=== PATIENT | male | born 1955 | race Caucasian/White ===

== ENCOUNTER 2016-06-16 09:30 | Inpatient (IN) | payer OTHER ==
--- NOTE | 2016-07-10 13:09 | GHP ---
[f rep st] PREOP HISTORY AND PHYSICAL DATE OF SURGERY: He will be an a.m. admission for surgery on July 15, 2016. PROBLEM: Right hip degenerative arthritis. HISTORY OF PRESENT ILLNESS: The patient is a 61-year-old man admitted for a right hip [place] hip resurfacing arthroplasty. For the past 2 years, he has developed progressive right hip pain. This initially started with groin pain. The pain has progressed. He has groin and buttock pain. He has been using ibuprofen. He normally likes to work out at the gym, ski, play golf and bicycle. I did his left BHR 8 years ago. He has a very good result. PAST MEDICAL HISTORY: He has a history of skin cancer. No history of previous MRSA staph infections. No history of heart disease or stents, DVT, hepatitis, or sleep apnea. CURRENT MEDICATIONS: None. ALLERGIES: Drug allergies: None. Metal allergies: None. Latex allergy: None. 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 He does not smoke cigarettes. Occasionally drinks alcohol. He is . FAMILY HISTORY: Positive for cancer, arthritis and heart disease. PHYSICAL EXAMINATION: GENERAL: He is a fit appearing man, height 5 feet 11 inches. Weight 180 pounds. BMI 25.1. EYES: Conjunctivae and sclerae are clear. Pupils are round and reactive. MOUTH: Good oral hygiene. No loose teeth. CHEST: Clear. HEART: Regular rhythm. No murmurs. EXTREMITIES: Pertinent findings are limited to his right hip. He has full hip extension and 90 degrees of flexion. External rotation 10 degrees. Internal rotation 0 degrees. Abduction 25 degrees. IMAGING: Films show advanced degenerative arthritis of his right hip. He is bone on bone. His left BHR looks good. He has a moderate area of heterotopic ossification lateral to the hip joint. IMPRESSION ON ADMISSION: 1. Right hip advanced degenerative arthritis. 2. Eight years status post left Stanley hip resurfacing. PLAN: He will undergo a right hip Priscila hip resurfacing arthroplasty. The surgery has been described to him including the risks, complications, expectations, and recovery time. I have reviewed with him again the risk of infection, dislocation, sciatic nerve injury and femoral neck fracture. I have also discussed with him in detail the issue of elevated metal ions in the blood and in the soft tissues around the hip joint. I have offered him the option of a conventional total hip replacement. All his questions have been answered. He feels strongly that he wants to go ahead with another resurfacing procedure. /[id number]/MODL MTDD
[2016-07-15] MEDS ORDERED: FAMOTIDINE 20 MG TAB PO ONE (06:00)
[2016-07-15] MEDS ORDERED: POVIDONE-IODINE 20 ML in SODIUM CL IRRIG SOLUTION 500 ML IRR ONE (06:00)
[2016-07-15] MEDS ORDERED: CEFAZOLIN 2 GM/DEXTR 100 ML IV ONE (06:00)
[2016-07-15] MEDS ORDERED: CHLORHEXIDINE GLUC HIBICLENS 118 ML BTL TP ONE (06:00)
[2016-07-15] MEDS ORDERED: ROPI/epiNEPH/KETOROLAC JOINT COCKTAIL IU ONE (06:00)
[2016-07-15] MEDS ORDERED: TRANEXAMIC ACID 1,640 MG in NS 100 ML IV ONE (06:00)
[2016-07-15] MEDS ORDERED: ACETAMINOPHEN 325 MG TAB PO ONE (06:00)
[2016-07-15] MEDS ORDERED: DEXAMETHASONE 4 MG/ML VIAL IVP ONE (06:00)
[2016-07-15] MEDS ORDERED: ACETAMINOPHEN 325 MG TAB ONE (08:21)
[2016-07-15] MEDS ORDERED: FAMOTIDINE 20 MG TAB ONE (08:21)
[2016-07-15] MEDS ORDERED: DEXAMETHASONE 4 MG/ML VIAL ONE (08:21)
[2016-07-15] MEDS ORDERED: CEFAZOLIN 2 GM/DEXTROSE/100 ML BAG IV ONE (08:22)
[2016-07-15] MEDS ORDERED: LIDOCAINE 1% 5 ML SDV ONE (08:22)
[2016-07-15] MEDS ORDERED: SKIN ADHESIVE (DERMABOND) 1 EACH TP ONE (08:37)
[2016-07-15] MEDS ORDERED: ceFAZolin 1 GM/5 ML SYR ONE (08:37)
[2016-07-15] MEDS ORDERED: fentaNYL 100 MCG/2 ML INJ ONE (09:07)
[2016-07-15] MEDS ORDERED: PROPOFOL/EMULSION 500 MG/50 ML BOTTLE IV ONE (09:07)
[2016-07-15] MEDS ORDERED: LIDOCAINE 1% 5 ML SDV ID PRN (09:29)
[2016-07-15] MEDS ORDERED: LR 1,000 ML IV ONE (09:29)
[2016-07-15] MEDS ORDERED: MIDAZOLAM 2 MG/2 ML VIAL ONE (09:30)
[2016-07-15] MEDS ORDERED: LIDOCAINE 2% 5 ML SDV ONE ×2 (09:49)
[2016-07-15] MEDS ORDERED: epHEDrine SULFATE 10 MG/ML SYR ONE ×2 (10:13→10:24)
--- NOTE | 2016-07-15 11:30 | POSTOPPROG ---
Post Op Note Date of Operation: 07/15/16 Surgeon: Chriss Montelongo Supervisor [employer]: Jennifer Anesthesiologist: Stanley Anesthesia: IV Sedation, Spinal Post-op Diagnosis: right hip arthritis Procedure: R BHR Inf/Abcess present in the surg proc area at time of surgery?: No EBL: 100-500
[2016-07-15] MEDS ORDERED: PROMETHAZINE HCL 25 MG SUPPR PR PRN (11:41)
[2016-07-15] MEDS ORDERED: diphenhydrAMINE 25 MG CAP PO PRN (11:41)
[2016-07-15] MEDS ORDERED: LACTULOSE 20 GM/30 ML UDCUP PO PRN (11:41)
[2016-07-15] MEDS ORDERED: MAGNESIUM HYDROXIDE 30 ML UDCUP PO PRN (11:41)
[2016-07-15] MEDS ORDERED: BISACODYL 10 MG SUPP PR PRN (11:41)
[2016-07-15] MEDS ORDERED: DIPHENOXYLATE/ATROPINE LOMOTIL 1 TAB PO PRN (11:41)
[2016-07-15] MEDS ORDERED: traMADol 50 MG TAB PO PRN (11:41)
[2016-07-15] MEDS ORDERED: CYCLOBENZAPRINE 10 MG TAB PO PRN (11:41)
[2016-07-15] MEDS ORDERED: oxyCODONE IR 5 MG TAB PO PRN (11:41)
[2016-07-15] MEDS ORDERED: ONDANSETRON 4 MG/2 ML VIAL IVP PRN (11:41)
[2016-07-15] MEDS ORDERED: PROMETHAZINE HCL 25 MG/ML INJ IVP PRN (11:41)
[2016-07-15] MEDS ORDERED: TEMAZEPAM 15 MG CAP PO PRN (11:41)
[2016-07-15] MEDS ORDERED: KETOROLAC 30 MG/1 ML SDV IVP PRN (11:41)
[2016-07-15] MEDS ORDERED: ONDANSETRON DISINTEGRATING 4 MG TAB PO PRN (11:41)
[2016-07-15] MEDS ORDERED: METOCLOPRAMIDE 10 MG/2 ML VIAL IVP PRN (11:41)
[2016-07-15] MEDS ORDERED: PHARMACY PAIN CONSULT 1 EA MISC PRN (11:41)
[2016-07-15] MEDS ORDERED: NS 500 ML IV PRN (11:41)
[2016-07-15] MEDS ORDERED: POLYETHYLENE GLYCOL 3350 17 GM PKT PO PRN (11:41)
[2016-07-15] MEDS ORDERED: KETOROLAC 30 MG/1 ML SDV ONE (12:06)
--- NOTE | 2016-07-15 12:44 | GOP ---
[f rep st] OPERATIVE REPORT DATE OF OPERATION: 07/15/2016 SURGEON: Chriss Montelongo MD PET NUTRITION SPECIALIST: URSZULA Sears, PAC. ANESTHESIA: Combination of Marcaine, spinal, and IV sedation. ANESTHESIOLOGIST: Shaq Angel DO. PREOPERATIVE DIAGNOSIS: Right hip degenerative arthritis. POSTOPERATIVE DIAGNOSIS: Right hip degenerative arthritis. PROCEDURE PERFORMED: 07/15/2016, right hip, [place] hip resurfacing arthroplasty. FINDINGS: ESTIMATED BLOOD LOSS: 400 mL. DESCRIPTION OF PROCEDURE: The patient was given 2 g of IV Ancef preoperatively within 60 minutes of surgery. They were also given IV tranexamic acid at a dose of 20 mg/kg. The patient was placed on the operating room table and given spinal anesthesia with Marcaine by Dr. Angel. He was then placed supine and given IV sedation. A Hu catheter was not used. The patient wore a compressiv e stocking and SCD on the nonoperative leg. He was rolled to the left lateral decubitus position. An axillary roll was used, and all pressure p oints were carefully padded. The position was secured with the pegboard table attachment. I was ca reful to lock the pelvis in a vertical position. The perineum was isolated with plastic adhesive dr mccarthy. The right hip and right lower extremity were prepped with ChloraPrep. They were draped free using sterile sheets, stockinette, and Ioban plastic drape. The [employer] time-out was performed to verify the correct patient identity and naheed ect surgical side. The [place] time-out was also performed. I made a 7-inch, straight, oblique, posterolateral hip, skin incision. Subcutaneous tissues were sh arply divided, and hemostasis was obtained using electrocautery. The fascia willie was identified and split along the axis of its fibers. I curved posteriorly and proximally and split the fascia of gl uteus hernando and bluntly split the muscle fibers in line with their orientation. His sciatic nerve was identified and protected throughout the procedure. The Charnley self-retaining retractor was i nserted. The external rotators and the posterior hip capsule were divided as separate layers at the base of the femoral neck, tagged and reflected posteriorly. The gluteus hernando tendon was divided and tagged in order to improve exposure and release tension on the sciatic nerve. The hip was disl ocated posteriorly. I used a sizing gauge to check the diameter of the neck and concluded that 50 m m was the proper head size. I performed a circumferential capsulotomy. I was able to retract the f emoral head anteriorly and superiorly and hold it out of place with appropriate retractors. The rem nant of his damaged labrum was completely excised. The acetabulum was reamed sequentially up to 56 mm. I selected a Priscila, monoblock, porous-coated, acetabular component with an outside diameter of 56 mm. This was firmly impacted and was very tight. I was careful to determine proper inclination and anteversion. I used the transverse acetabular ligament and other acetabular bony landmarks to h elp me properly orient the cup. Small posterior-inferior and anterior-superior osteophytes were rem katelyn with an osteotome and rongeur. I was careful to leave a good lip of bone and capsule extending beyond the anterior-inferior lip of the metal cup. I then returned to preparation of the femoral head. Using appropriate jigs and guides, I inserted a guide pin into the femoral head and neck. I was careful to position in such a way there would be n o notching of the neck. The large sterile metal goniometer was used to check the neck shaft angle. I reamed over the guide pin and inserted the reaming guide. I used a cylindrical reamer down to th e head/neck junction. This was followed by the flat reamer and the chamfer reamer. The head was si zed for 50 mm. There was no damage or impingement to the neck. He had some small anterior neck ost eophytes, which I removed with a rongeur. I drilled a small hole in the lesser trochanter and inser renny a suction cannula to create negative pressure medullary canal. Small holes were drilled on the flattened chamfer surfaces of the prepared head for cement anchors. The head was thoroughly cleaned with the pulsating lavage and carefully dried. I used a CarboJet device to blow dry the cancellous surfaces. A single batch of Simplex cement with tobramycin was mixed. At about 50 seconds, I poured the liqui d cement into the head component, inserted it on the femoral head, and impacted it into place. Exce ss cement was removed before it hardened. The acetabulum was irrigated, cleaned, and inspected and the hip was reduced. Stability and range of motion were checked. I placed my finger along the ante rior aspect of the acetabular component and flexed the hip to 110 degrees. There was no anterior im pingement. The suction cannula in the lesser trochanter was removed. The wound was thoroughly irrigated with a dilute Betadine solution. 40 mL of the joint anesthetic c ocktail were injected into the capsule, the deep musculature, and the subcutaneous tissues along the skin edges. His sciatic nerve was reinspected and looked unharmed. The external rotators and the posterior hip capsule were repaired in separate layers with #2 FiberWire sutures through drill holes in the greate r trochanter. The gluteus hernando tendon was repaired with 2 interrupted [id number]-ac-[id number] #2 FiberWi re sutures. The fascia willie was closed first with 2 interrupted [id number] #2 FiberWire suture s followed by a running #2 barbed Ethicon Stratafix PDO suture. Subcutaneous tissues were closed wi th a running 0 barbed Ethicon Stratafix Monoderm suture. The skin was closed with a running 3-0 bar bed Ethicon Stratafix Monoderm subcuticular suture. The skin edges were reapproximated and sealed w ith Dermabond glue. The wound was covered with a strip of Telfa, and everything was held in place w ith a piece of clear plastic Tegaderm. IMPLANTS: I used a [employer] Priscila hip resurfacing system. The acetabular component wa s 56 mm in diameter and press-fit. The femoral head was 50 mm and cemented. DISPOSITION: He was awakened from anesthesia and rolled to the supine position on his gurney. A lo ng-leg compressive stocking and SCD were applied to the operative leg. He wore a stocking and SCD o n the opposite leg during the procedure. An abduction pillow was placed between his knees. He was taken to PACU in satisfactory condition. There were no recognized intraoperative complications. The sponge and needle count were correct on 2 occasions. Joey Torres and Raffaele Christensen acted as surgical assistants. Their assistance was a regina avila. /[id number]/MODL
[2016-07-15] MEDS ORDERED: ceFAZolin 2 GM/DEXTROSE 100 ML IV SCH (14:00)
[2016-07-15] MEDS: ACETAMINOPHEN 325 MG TAB PO SCH ×4 (17:29→23:14)
[2016-07-15] MEDS: TRANEXAMIC ACID 650 MG TAB PO SCH ×3 (17:34→21:45)
[2016-07-15] MEDS: HYDROCODONE/APAP 5/325 TAB PO PRN ×2 (18:16→21:44)
[2016-07-15] MEDS: ceFAZolin 2 GM in D5W 100 ML IV SCH (18:43)
[2016-07-15] MEDS: FAMOTIDINE 20 MG TAB PO SCH (21:45)
[2016-07-15] MEDS: SENNOSIDES/DOCUSATE SODIUM TAB PO SCH (21:45)
[2016-07-15] MEDS: LR 1,000 ML IV SCH (21:45)
[2016-07-15] MEDS: ASPIRIN 325 MG TAB PO SCH (23:09)
[2016-07-16] MEDS: ceFAZolin 2 GM in D5W 100 ML IV SCH (01:05)
[2016-07-16] MEDS: ACETAMINOPHEN 325 MG TAB PO SCH ×2 (04:53→13:22)
[2016-07-16] MEDS: HYDROCODONE/APAP 5/325 TAB PO PRN (04:55)
[2016-07-16] MEDS: LR 1,000 ML IV SCH (04:57)
[2016-07-16 05:46] LABS: HEMATOCRIT 31.2 % (40.0-51.0); HEMOGLOBIN 10.7 g/dL (13.7-17.5)
--- NOTE | 2016-07-16 07:26 | SOAPPROG ---
SOAP Progress Note Assessment/Plan: Assessment: Afebrile. Awake and alert. Moderate pain. Mild postural hypotension when up. H/H is good. Sciatic nerve intact. H/H is intact. Plan: Single dose of radiation Rx for HO prevention. Continue PT DC later today. 07/16/16 07:24 Objective: Vital Signs Temp Pulse Resp BP Pulse Ox 36.6 C 59 L 16 110/64 96 07/16/16 04:00 07/16/16 04:00 07/16/16 04:00 07/16/16 04:00 07/16/16 04:00 Laboratory Results 07/16/16 05:25 07/15/16 07/16/16 07/17/16 05:59 05:59 05:59 Intake Total 3912 Output Total 1950 Balance 196 ICD10 Worksheet Patient Problems: Problems Problem Status Onset Osteoarthritis of right hip Acute
[2016-07-16 07:39] VITALS: BP 136/69; PULSE 67; RESP 18; TEMP 98.1; O2SAT 95
[2016-07-16] MEDS: ASPIRIN 325 MG TAB PO SCH (08:11)
[2016-07-16] MEDS: SENNOSIDES/DOCUSATE SODIUM TAB PO SCH (08:12)
[2016-07-16] MEDS: TRANEXAMIC ACID 650 MG TAB PO SCH (08:13)
[2016-07-16] MEDS: FAMOTIDINE 20 MG TAB PO SCH (08:14)
[2016-07-16] MEDS ORDERED: FERROUS SULFATE 140 MG TAB.ER PO SCH (09:00)
--- NOTE | 2016-07-16 09:11 | GDS ---
[f rep st] DISCHARGE SUMMARY ADMISSION DIAGNOSIS: Right hip severe degenerative arthritis. DISCHARGE DIAGNOSIS: Right hip severe degenerative arthritis. OPERATION PERFORMED: 07/15/2016, a right hip [place] hip resurfacing arthroplasty. POSTOPERATIVE COMPLICATIONS: None. CONDITION ON DISCHARGE: Improved. DESCRIPTION OF HOSPITAL COURSE: The patient was admitted to the hospital on the morning of surgery. His admission CBC was normal. The same day, under a combination of Marcaine spinal anesthesia and IV sedation, he underwent a right hip [place] hip resurfacing arthroplasty. Postoperatively, he was treated with multimodal DVT prophylaxis including aspirin. On the 1st postoperative day , his hemoglobin and hematocrit were 10.7 and 31.2. He was seen by Physical Therapy and made satisfactory progress with ambulation and stairs. The patient developed a moderate amount of heterotopic ossification when I did his left BHR. On the 1st postoperative day, he received a single dose of radiation therapy to the right hip to minimize the risk of recurrence of heterotopic ossification. By the time of discharge, he was afebrile and was independent walking with his walker. DISPOSITION: The patient is discharged to his home. He will go to outpatient physical therapy. Continue aspirin 325 mg p.o. daily for 21 days. Continue CANDIDO stockings for 1 week. Use an abduction pillow in bed for 3 weeks. He has prescriptions for oxycodone and tramadol for pain. I will see him back in the office on August 03, 2016. If any problems, he is to call me at the office. /[id number]/MODL MTDD
== END 2016-07-16 14:17 | disposition home or self-care (01) | DRG 470 ==
LOC: F3N 07-15 07:52
PROVIDERS: ADMIT Orthopaedic Surgery; ATTEND Orthopaedic Surgery
PROC: 0SR90J9 Replacement of Right Hip Joint with Synthetic Substitute, Cemented, Open Approach (ICD-10-PCS; principal; 2016-07-15 09:15)
DX: M16.11 Unilateral primary osteoarthritis, right hip (principal); Z85.820 Personal history of malignant melanoma of skin
CPT/HCPCS: 97116-GP; 97161-GP; 97165-GO; C1713; C1769; J0171; J0690; J1100; J1885; J2250; J2704; J2795; J3010